=== PATIENT | male | born 1990 | race African-American/Black ===

== ENCOUNTER 2016-05-09 12:59 | Emergency (ER) | payer SELFPAY ==
[2016-05-09] MEDS ORDERED: Benzonatate 100 MG CAP ONE (13:36)
[2016-05-09] MEDS ORDERED: Acetaminophen 325 MG TAB ONE (13:36)
--- NOTE | 2016-05-09 13:56 | ERRECORD ---
[facility] EMERGENCY RECORD HPI COUGH (15:36 LHOD) CHIEF COMPLAINT: Patient presents for evaluation of cough. HISTORIAN: History provided by patient. TIME COURSE: WEDNESDAY ONSET OF DRY COUGH. TODAY TEMP TO 100.8. MOTHER WITH SAME SYMPTOMS. SEEN HERE ALSO. ASSOCIATED WITH: No associated chest pain, No associated chills, No associated diarrhea, No associated diaphoresis, No associated dyspnea on exertion, Associated with fever, No associated increased inhaler use, No associated nausea, No associated orthopnea, No associated palpitations, No associated paroxysmal nocturnal dyspnea, No associated peripheral edema, No associated pleuritic symptoms, No associated stridor, No associated wheezing, No associated weakness. EXACERBATED BY: Patient's condition exacerbated by nothing. RELIEVED BY: Patient's condition relieved by nothing. ROS (15:38 LHOD) CONSTITUTIONAL: Historian reports fever, measured temperature of 100.8. ENT: Historian reports epistaxis, denies sore throat. NOSEBLEEDS EARLIER TODAY. CARDIOVASCULAR: Historian denies chest pain. RESPIRATORY: Historian reports cough, denies shortness of breath. GI: Historian denies abdominal pain, denies diarrhea, denies vomiting. MUSCULOSKELETAL: Negative musculoskeletal review of systems. SKIN: Historian denies rash. NEUROLOGIC: Historian denies headache. HEMO/LYMPHATIC: Historian denies easy bruising. ALLERGIC/IMMUNOLOGIC: Historian denies environmental allergies. NOTES: All systems reviewed, negative except as described above. PAST MEDICAL HISTORY MEDICAL HISTORY: Flu vaccine not up to date, Tetanus not up to date, Pneumococcal vaccine not up to date, Past medical history includes pulmonary disease, asthma. ([facility] May 09, 2016 13:18 MDEB) MALE SURGICAL HISTORY: Patient has no surgical history. ([facility] May 09, 2016 13:18 MDEB) PSYCHIATRIC HISTORY: No previous psychiatric history. ([facility] May 09, 2016 13:18 MDEB) SOCIAL HISTORY: Patient denies alcohol use, Patient denies drug use, Patient currently uses tobacco, smokes cigarettes, Light tobacco smoker, Patient drinks socially, twice a month, Patient is a former drug user, abused marijuana, Patient currently uses tobacco, smokes cigarettes, daily, Patient smokes 1 pack per day, Patient denies alcohol use, Patient is a former drug user, Drug history notes: DENIES WITH HESITATION, Patient currently uses tobacco, smokes cigarettes, Patient smokes 1/2 packs per day, Patient &a-1R&a+25V*p+0X*[id number]*c202B*c15G*c2P*p-0X&a-25V&a+1R Name: Henri Santoyo : 1990 M26 MedRec: [id number] AcctNum: [id number] Prepared: [facility] May 09, 2016 15:44 by Interface Page 1 of 3 pMD [facility] EMERGENCY RECORD currently uses tobacco, Patient smokes cigarettes, Patient drinks socially, Patient denies drug use. 03/05/14 VERIFIED SMOKER. Patient currently uses drugs, abuses marijuana, Daily drug use, Patient currently uses tobacco, Patient smokes cigarettes, Patient drinks socially, Patient denies drug use. 03/05/14 VERIFIED SMOKER. - PER PT "I SMOKE EVERY COUPLE OF DAYS". (Sat May 09, 2016 13:18 MDEB) FAMILY HISTORY: Family istory is not significant, Family history includes diabetes. ([facility] May 09, 2016 13:18 MDEB) NOTES: Nursing records reviewed. (13:22 LHOD) KNOWN ALLERGIES No Known Drug Allergies CURRENT MEDICATIONS No recorded medications VITAL SIGNS VITAL SIGNS: BP: 190/65, Pulse: 94, Resp: 20, Temp: 100.2 (Tympanic), Pain: 0, O2 sat: 99 on Room Air, Time: 05/09/2016 13:14. (13:14 MDEB) BP: 104/73, Pulse: 96, Resp: 18, O2 sat: 100 on RA, Time: 05/09/2016 13:45. (13:45 MDEB) PHYSICAL EXAM (15:38 LHOD) CONSTITUTIONAL: Vital Signs Reviewed, Patient febrile, temperature of 100.2, Pulse normal, Blood pressure, hypertensive, REPEATED 104/73---SO INITIAL PROBABLE ERROR, Respiratory rate normal, Normal pulse oximetry, Patient appears non toxic, Patient appears pain free, Patient alert and oriented to person, place and time. EYES: Pupils equally round and reactive to light, Extraocular muscles intact, Conjunctiva normal. ENT: Ear exam normal, Nose exam included findings of, DRIED BLOOD IN NARES, Pharynx exam normal. NECK: Neck exam included findings of normal range of motion, Trachea midline. RESPIRATORY CHEST: Respiratory exam included findings of no respiratory distress, Breath sounds clear. CARDIOVASCULAR: Cardiovascular exam included findings of heart rate regular rate and rhythm, Heart sounds normal. ABDOMEN MALE: Abdominal exam included findings of abdomen nontender. BACK: Back exam normal. UPPER EXTREMITY: Upper extremity exam normal. LOWER EXTREMITY: Left lower leg exam normal, Right lower leg exam normal. NEURO: Neuro exam findings include patient oriented to person, place and time, Speech normal. SKIN: no rash. &a-1R&a+25V*p+0X*x8812R*c202B*c15G*c2P*p-0X&a-25V&a+1R Name: Henri Santoyo : 1990 M26 MedRec: [id number] AcctNum: [id number] Prepared: [facility] May 09, 2016 15:44 by Interface Page 2 of 3 pMD [facility] EMERGENCY RECORD MEDICATION ADMINISTRATION SUMMARY Drug Name: Tylenol, Dose Ordered: 650 mg, Route: Oral, Status: Given, Time: 13:40 05/09/2016, Drug Name: benzonatate, Dose Ordered: 200 mg, Route: Oral, Status: Given, Time: 13:40 05/09/2016, Detailed record available in Medication Service section. DOCTOR NOTES (15:41 LHOD) TEXT: NO TREATMENT OF EPISTAXIS REQUIRED. PROBLEM LIST No recorded problems DIAGNOSIS (13:31 LHOD) FINAL: PRIMARY: VIRAL URI, ADDITIONAL: BILATERAL EPISTAXIS---RESOLVED, LABILE HYPERTENSION. PRESCRIPTION (13:32 LHOD) albuterol sulfate inhalation: HFA AEROSOL WITH ADAPTER (GM) : 90 mcg : INHALATION : Quantity: 2 Unit: puff(s) Route: INHALATION Schedule: every 4 hours prn Dispense: 1 May substitute. Refills: No Refills . NOTES: No Refills. benzonatate: CAPSULE (HARD, SOFT, ETC.) : 200 mg : ORAL : Quantity: 1 Unit: tab(s) Route: ORAL Schedule: every 8 hours PRN Dispense: 10 May substitute. Refills: No Refills . NOTES: 1 REFILL No Refills. DISPOSITION PATIENT: Disposition Type: Discharge, Disposition: *Discharge Home, Condition: Good. (13:31 LHOD) Disposition Transport: Car, Patient left the department. (13:48 LWAL) Meier: LHOD=MD Brittni, Nicolette LWAL=HIWOT Hurtado, Tonia BLACKMONEB=HIWOT Mcdonald, Irma &a-1R&a+25V*p+0X*[id number]*c202B*c15G*c2P*p-0X&a-25V&a+1R Name: Henri Santoyo : 1990 M26 MedRec: [id number] AcctNum: [id number] Prepared: [facility] May 09, 2016 15:44 by Interface Page 3 of 3 pMD MTDD
--- NOTE | 2016-05-09 14:02 | PICIS ---
[facility] EMERGENCY RECORD TRIAGE ([facility] May 09, 2016 13:18 MDEB) PATIENT: NAME: Henri Santoyo, AGE: 26, GENDER: male, : Andreina 1990, TIME OF GREET: WedMay 09, 2016 12:59, PREFERRED LANGUAGE: Malay, RACE: Black or , ETHNICITY: Not or , ECODE BILLING MAP: [facility], SSN: [id number], Zip Code: [address], KG WEIGHT: 53.52, PHONE: , , , PERSON ID: [id number], PCP: NO PCP. ([facility] May 09, 2016 13:18 MDEB) TRIAGE NOTES: PRODUCTIVE COUGH, FEVER, CONGESTION X 3 DAYS. ([facility] May 09, 2016 13:18 MDEB) COMPLAINT: FLU LIKE SYMPTOMS. ([facility] May 09, 2016 13:18 MDEB) ADMISSION: URGENCY: 4 Non Urgent, ADMISSION SOURCE: Home, TRANSPORT: Walk-in, BED: TRIAGE. ([facility] May 09, 2016 13:18 MDEB) PAIN: Notes: PLEURETIC PAIN WITH COUGH. ([facility] May 09, 2016 13:18 MDEB) TRIAGE SCREENING: Patient denies suicidal ideation, Patient denies presence of domestic violence. ([facility] May 09, 2016 13:18 MDEB) PROVIDERS: TRIAGE NURSE: Irma Mcdonald RN. ([facility] May 09, 2016 13:18 MDEB) VITAL SIGNS: BP 190/65, Pulse 94, Resp 20, Temp 100.2, (Tympanic), Pain 0, O2 Sat 99, on Room Air, Time 05/09/2016 13:14. (13:14 MDEB) PREVIOUS VISIT ALLERGIES: No Known Drug Allergies. ([facility] May 09, 2016 13:18 MDEB) KNOWN ALLERGIES No Known Drug Allergies CURRENT MEDICATIONS No recorded medications VITAL SIGNS VITAL SIGNS: BP: 190/65, Pulse: 94, Resp: 20, Temp: 100.2 (Tympanic), Pain: 0, O2 sat: 99 on Room Air, Time: 05/09/2016 13:14. (13:14 MDEB) BP: 104/73, Pulse: 96, Resp: 18, O2 sat: 100 on RA, Time: 05/09/2016 13:45. (13:45 MDEB) NURSING ASSESSMENT: RESPIRATORY /CHEST (13:18 MDEB) CONSTITUTIONAL: Patient arrives ambulatory, Gait steady, History obtained from patient, Patient appears, anxious, uncomfortable, Patient cooperative, Patient alert, Oriented to person, place and time, Skin warm, Skin dry, Skin normal in color, Mucous membranes pink, Mucous membranes moist, Patient is well-groomed, Patient complains of PRODUCTIVE COUGH, REPORTS FEVER, CONGESTION X 3 DAYS. PAIN: aching pain, PAIN WITH COUGH ONLY. RESPIRATORY/CHEST: Breath sounds clear, Respiratory assessment findings include respiratory effort easy, Respirations regular, Conversing normally, Neck and chest exam findings include trachea &a-1R&a+25V*p+0X*[id number]*c202B*c15G*c2P*p-0X&a-25V&a+1R Name: Henri Santoyo : 1990 M26 MedRec: [id number] AcctNum: [id number] Prepared: [facility] May 09, 2016 15:50 by Interface Page 1 of 6 pMD [facility] EMERGENCY RECORD midline, Chest expansion equal, Chest movement symmetrical, Associated with cough, productive of, green sputum, Associated with fever, Maximum temperature 100.2, tympanic. ENT: Ear assessment findings include ear normal to inspection, Congestion, Mouth and throat assessment findings include mouth inspection normal, Mucous membranes pink, and moist, Able to swallow, Speech normal, Associated with fever, Maximum temperature (degree F) 100.2, tympanically. NOTES: Emotional support needed and given, Patient tolerated procedure well. SAFETY: Side rails up, Cart/Stretcher in lowest position, Call light within reach, Hospital ID band on. NURSING PROCEDURE: DISCHARGE NOTE (13:45 MDEB) DISCHARGE: Patient discharged to home, ambulating without assistance, driving self, unaccompanied, Summary of Care printed/ provided, Patient requested and was provided an electronic copy of Discharge Instructions, Transition record given to patient, Discharge instructions given to patient, Prescriptions given and instructions on side effects given, Above person(s) verbalized understanding of discharge instructions and follow-up care, Patient treated and evaluated by physician. BELONGINGS: Belongings remain with patient, Valuables remain with patient. NOTES: Emotional support needed and given, Patient tolerated procedure well. VITAL SIGNS: BP: 104, / 73, Pulse: 96, Resp: 18, O2 sat: 100, on: RA. MEDICATION ADMINISTRATION SUMMARY Drug Name: Tylenol, Dose Ordered: 650 mg, Route: Oral, Status: Given, Time: 13:40 05/09/2016, Drug Name: benzonatate, Dose Ordered: 200 mg, Route: Oral, Status: Given, Time: 13:40 05/09/2016, Detailed record available in Medication Service section. MEDICATION SERVICE (13:40 OD) benzonatate: Order: benzonatate - Dose: 200 mg : Oral Ordered by: Nicolette Elkins MD Entered by: Nicolette Elkins MD Sat May 09, 2016 13:31 , Acknowledged by: Tonia Hurtado RN Sat May 09, 2016 13:34 Documented as given by: Tonia Hurtado RN Sat May 09, 2016 13:40 Patient, Medication, Dose, Route and Time verified prior to administration. Amount given: 200MG, Site: Medication administered P.O., Correct patient, time, route, dose and medication confirmed prior to administration, Patient advised of actions and side-effects prior to administration, Allergies confirmed and medications reviewed prior to &a-1R&a+25V*p+0X*y6406R*c202B*c15G*c2P*p-0X&a-25V&a+1R Name: Henri Santoyo : 1990 M26 MedRec: [id number] AcctNum: [id number] Prepared: Sat May 09, 2016 15:50 by Interface Page 2 of 6 pMD [facility] EMERGENCY RECORD administration, Patient in position of comfort, Side rails up, Cart in lowest position. Tylenol: Order: Tylenol (acetaminophen) - Dose: 650 mg : Oral Ordered by: Nicolette Elkins MD Entered by: Nicolette Elkins MD Sat May 09, 2016 13:31 , Acknowledged by: Tonia Hurtado RN Sat May 09, 2016 13:34 Documented as given by: Tonia Hurtado RN Sat May 09, 2016 13:40 Patient, Medication, Dose, Route and Time verified prior to administration. Amount given: 650 MG, Site: Medication administered P.O., Correct patient, time, route, dose and medication confirmed prior to administration, Patient advised of actions and side-effects prior to administration, Allergies confirmed and medications reviewed prior to administration, Patient in position of comfort, Side rails up, Cart in lowest position. HPI COUGH (15:36 LHOD) CHIEF COMPLAINT: Patient presents for evaluation of cough. HISTORIAN: History provided by patient. TIME COURSE: WEDNESDAY ONSET OF DRY COUGH. TODAY TEMP TO 100.8. MOTHER WITH SAME SYMPTOMS. SEEN HERE ALSO. ASSOCIATED WITH: No associated chest pain, No associated chills, No associated diarrhea, No associated diaphoresis, No associated dyspnea on exertion, Associated with fever, No associated increased inhaler use, No associated nausea, No associated orthopnea, No associated palpitations, No associated paroxysmal nocturnal dyspnea, No associated peripheral edema, No associated pleuritic symptoms, No associated stridor, No associated wheezing, No associated weakness. EXACERBATED BY: Patient's condition exacerbated by nothing. RELIEVED BY: Patient's condition relieved by nothing. ROS (15:38 LHOD) CONSTITUTIONAL: Historian reports fever, measured temperature of 100.8. ENT: Historian reports epistaxis, denies sore throat. NOSEBLEEDS EARLIER TODAY. CARDIOVASCULAR: Historian denies chest pain. RESPIRATORY: Historian reports cough, denies shortness of breath. GI: Historian denies abdominal pain, denies diarrhea, denies vomiting. MUSCULOSKELETAL: Negative musculoskeletal review of systems. SKIN: Historian denies rash. NEUROLOGIC: Historian denies headache. HEMO/LYMPHATIC: Historian denies easy bruising. ALLERGIC/IMMUNOLOGIC: Historian denies environmental allergies. NOTES: All systems reviewed, negative except as described above. &a-1R&a+25V*p+0X*m2612K*c202B*c15G*c2P*p-0X&a-25V&a+1R Name: Henri Santoyo : 1990 M26 MedRec: [id number] AcctNum: [id number] Prepared: Sat May 09, 2016 15:50 by Interface Page 3 of 6 pMD [facility] EMERGENCY RECORD PAST MEDICAL HISTORY MEDICAL HISTORY: Flu vaccine not up to date, Tetanus not up to date, Pneumococcal vaccine not up to date, Past medical history includes pulmonary disease, asthma. (Sat May 09, 2016 13:18 MDEB) MALE SURGICAL HISTORY: Patient has no surgical history. ([facility] May 09, 2016 13:18 MDEB) PSYCHIATRIC HISTORY: No previous psychiatric history. ([facility] May 09, 2016 13:18 MDEB) SOCIAL HISTORY: Patient denies alcohol use, Patient denies drug use, Patient currently uses tobacco, smokes cigarettes, Light tobacco smoker, Patient drinks socially, twice a month, Patient is a former drug user, abused marijuana, Patient currently uses tobacco, smokes cigarettes, daily, Patient smokes 1 pack per day, Patient denies alcohol use, Patient is a former drug user, Drug history notes: DENIES WITH HESITATION, Patient currently uses tobacco, smokes cigarettes, Patient smokes 1/2 packs per day, Patient currently uses tobacco, Patient smokes cigarettes, Patient drinks socially, Patient denies drug use. 03/05/14 VERIFIED SMOKER. Patient currently uses drugs, abuses marijuana, Daily drug use, Patient currently uses tobacco, Patient smokes cigarettes, Patient drinks socially, Patient denies drug use. 03/05/14 VERIFIED SMOKER. - PER PT "I SMOKE EVERY COUPLE OF DAYS". ([facility] May 09, 2016 13:18 MDEB) FAMILY HISTORY: Family istory is not significant, Family history includes diabetes. ([facility] May 09, 2016 13:18 MDEB) NOTES: Nursing records reviewed. (13:22 LHOD) PHYSICAL EXAM (15:38 LHOD) CONSTITUTIONAL: Vital Signs Reviewed, Patient febrile, temperature of 100.2, Pulse normal, Blood pressure, hypertensive, REPEATED 104/73---SO INITIAL PROBABLE ERROR, Respiratory rate normal, Normal pulse oximetry, Patient appears non toxic, Patient appears pain free, Patient alert and oriented to person, place and time. EYES: Pupils equally round and reactive to light, Extraocular muscles intact, Conjunctiva normal. ENT: Ear exam normal, Nose exam included findings of, DRIED BLOOD IN NARES, Pharynx exam normal. NECK: Neck exam included findings of normal range of motion, Trachea midline. RESPIRATORY CHEST: Respiratory exam included findings of no respiratory distress, Breath sounds clear. CARDIOVASCULAR: Cardiovascular exam included findings of heart rate regular rate and rhythm, Heart sounds normal. ABDOMEN MALE: Abdominal exam included findings of abdomen nontender. BACK: Back exam normal. UPPER EXTREMITY: Upper extremity exam normal. LOWER EXTREMITY: Left lower leg exam normal, Right lower leg exam normal. &a-1R&a+25V*p+0X*e1676X*c202B*c15G*c2P*p-0X&a-25V&a+1R Name: Henri Santoyo : 1990 M26 MedRec: [id number] AcctNum: [id number] Prepared: [facility] May 09, 2016 15:50 by Interface Page 4 of 6 pMD [facility] EMERGENCY RECORD NEURO: Neuro exam findings include patient oriented to person, place and time, Speech normal. SKIN: no rash. EVENTS TRANSFER: Triage to Emergency Triage. (13:18 MDEB) Emergency Triage to Main ED -01. (13:18 MDEB) Removed from Emergency Main ED -01. (13:48 LWAL) DOCTOR NOTES (15:41 LHOD) TEXT: NO TREATMENT OF EPISTAXIS REQUIRED. PROBLEM LIST No recorded problems DIAGNOSIS (13:31 LHOD) FINAL: PRIMARY: VIRAL URI, ADDITIONAL: BILATERAL EPISTAXIS---RESOLVED, LABILE HYPERTENSION. DISPOSITION PATIENT: Disposition Type: Discharge, Disposition: *Discharge Home, Condition: Good. (13:31 LHOD) Disposition Transport: Car, Patient left the department. (13:48 LWAL) INSTRUCTION (13:33 LHOD) DISCHARGE: VIRAL URI ADULT, EPISTAXIS (ADULT), FEVER CONTROL (ADULT). FOLLOWUP: Follow up with Primary Care Physician as needed. SPECIAL: GET ALBUTEROL PRESCRIPTION FILLED ONLY IF WHEEZING. *RETURN IF WORSE Follow-up with your PCP. PRESCRIPTION (13:32 LHOD) albuterol sulfate inhalation: HFA AEROSOL WITH ADAPTER (GM) : 90 mcg : INHALATION : Quantity: 2 Unit: puff(s) Route: INHALATION Schedule: every 4 hours prn Dispense: 1 May substitute. Refills: No Refills . NOTES: No Refills. benzonatate: CAPSULE (HARD, SOFT, ETC.) : 200 mg : ORAL : Quantity: 1 Unit: tab(s) Route: ORAL Schedule: every 8 hours PRN Dispense: 10 May substitute. Refills: No Refills . NOTES: 1 REFILL No Refills. IMAGING (13:49 LWAL) *DISCHARGE INSTRUCTIONS RECEIPT: Image captured from scanner. *SUPPLY CHARGE SHEET: Image captured from scanner. ADMIN (15:41 LHOD) &a-1R&a+25V*p+0X*o8830Q*c202B*c15G*c2P*p-0X&a-25V&a+1R Name: Henri Santoyo : 1990 6 MedRec: [id number] AcctNum: [id number] Prepared: Sat May 09, 2016 15:50 by Interface Page 5 of 6 pMD [facility] EMERGENCY RECORD DIGITAL SIGNATURE: MD Brittni, Nicolette. Meier: LHOD=MD Elkins Lefayne LWAL=HIWOT Hurtado, Tonia BLACKMONEB=HIWOT Mcdonald, Irma &a-1R&a+25V*p+0X*l0514R*c202B*c15G*c2P*p-0X&a-25V&a+1R Name: Henri Santoyo Charito : 1990 [facility] [place] MedRec: [id number] AcctNum: [id number] Prepared: Sat May 09, 2016 15:50 by Interface Page 6 of 6 pMD MTDD
== END 2016-05-09 13:45 | disposition home or self-care (01) ==
LOC: MADERS 12:59
DX: J06.9 Acute upper respiratory infection, unspecified (principal); R04.0 Epistaxis; I10 Essential (primary) hypertension; J45.909 Unspecified asthma, uncomplicated; F17.210 Nicotine dependence, cigarettes, uncomplicated
CPT/HCPCS: 99283

== ENCOUNTER 2021-12-07 12:20 | Emergency (ER) | payer SELFPAY ==
[2021-12-07] MEDS ORDERED: Triamcinolone 40 MG/ML VIAL ONE (14:30)
== END 2021-12-07 14:45 | disposition home or self-care (01) ==
LOC: MADERS 12:20
DX: J30.1 Allergic rhinitis due to pollen (principal); L30.9 Dermatitis, unspecified; F17.210 Nicotine dependence, cigarettes, uncomplicated
CPT/HCPCS: 96372; 99282; J3301

== ENCOUNTER 2022-03-13 20:26 | Emergency (ER) | payer SELFPAY ==
[2022-03-13] MEDS ORDERED: Acetaminophen 500 MG TAB ONE (21:05)
[2022-03-13] MEDS ORDERED: Ibuprofen 800 MG TAB ONE (21:05)
[2022-03-13] MEDS ORDERED: predniSONE 20 MG TAB ONE (21:40)
[2022-03-13] MEDS ORDERED: predniSONE 10 MG TAB ONE (21:40)
[2022-03-13] MEDS ORDERED: Albuterol 200 PUFF (6.7GM INHALER) ONE (21:40)
[2022-03-13] MEDS ORDERED: Benzonatate 100 MG CAP ONE (22:06)
== END 2022-03-13 22:15 | disposition home or self-care (01) ==
LOC: MADERS 20:26
DX: J10.1 Influenza due to other identified influenza virus with other respiratory manifestations (principal); J45.909 Unspecified asthma, uncomplicated; F17.210 Nicotine dependence, cigarettes, uncomplicated; Z20.822 Contact with and (suspected) exposure to COVID-19
CPT/HCPCS: 71046; 87804; 93005; J7512; U0003; U0005

== ENCOUNTER 2022-05-28 14:11 | Emergency (ER) | payer SELFPAY ==
[2022-05-28] MEDS ORDERED: Dexamethasone 10 MG/ML VIAL ONE (14:30)
== END 2022-05-28 14:48 | disposition home or self-care (01) ==
LOC: MADERS 14:11
DX: J30.9 Allergic rhinitis, unspecified (principal); F17.210 Nicotine dependence, cigarettes, uncomplicated
CPT/HCPCS: 96372; 99282; J1100

== ENCOUNTER 2022-06-01 18:30 | Emergency (ER) | payer SELFPAY | END 2022-06-01 19:25 | disposition home or self-care (01) | LOC: MADERS 18:30 | DX: J30.9 Allergic rhinitis, unspecified (principal); F17.210 Nicotine dependence, cigarettes, uncomplicated | CPT/HCPCS: 99282 ==

== ENCOUNTER 2022-07-25 09:11 | Emergency (ER) | payer SELFPAY ==
[2022-07-25] MEDS ORDERED: Sterile Water 10 ML ONE (09:35)
[2022-07-25] MEDS ORDERED: Ipratropium/Albuterol 3 ML NEB ONE (09:36)
[2022-07-25] MEDS ORDERED: cefTRIAXone (ROCEPHIN) 1 GM VIAL ONE (09:36)
== END 2022-07-25 10:52 | disposition home or self-care (01) ==
LOC: MADERS 09:11
DX: J20.9 Acute bronchitis, unspecified (principal); F17.210 Nicotine dependence, cigarettes, uncomplicated
CPT/HCPCS: 71046; 96372; J0696; J1040; J7620

== ENCOUNTER 2022-10-23 19:30 | Emergency (ER) | payer OTHER ==
[2022-10-23] MEDS ORDERED: Ondansetron ODT 4 MG TAB ONE (19:49)
== END 2022-10-23 20:06 | disposition home or self-care (01) ==
LOC: MADERS 19:30
DX: K52.9 Noninfective gastroenteritis and colitis, unspecified (principal); F17.210 Nicotine dependence, cigarettes, uncomplicated
CPT/HCPCS: 99283; Q0162

== ENCOUNTER 2022-12-11 20:08 | Emergency (ER) | payer OTHER | END 2022-12-11 21:28 | disposition home or self-care (01) | LOC: MADERS 20:08 | DX: B34.9 Viral infection, unspecified (principal); F17.210 Nicotine dependence, cigarettes, uncomplicated | CPT/HCPCS: 87081; 87430; 87804; 99284 ==

== ENCOUNTER 2023-03-14 21:29 | Emergency (ER) | payer OTHER ==
[2023-03-14] MEDS ORDERED: Acetaminophen 325 MG TAB ONE (22:01)
[2023-03-14 23:36] LABS: Bilirubin Negative (Negative); Blood, Urine Negative (Negative); Clarity Clear (Clear); Glucose, Urine (Dipstick) Negative (Negative); Ketone, Urine Negative (Negative); Leukocyte Negative (Negative); Nitrite Negative (Negative); Protein, Urine (Dipstick) Negative (Neg-Trace); Urobilinogen 0.2 mg/dL (Less than 2); pH, Urine 5.5 (5.0-9.0)
[2023-03-14 23:37] LABS: CAUTI Indications for Culture Fever or rigors; RBC/HPF None Seen HPF (0-3); Specific Gravity, Urine 1.005 (1.002-1.036); Squamous Epithelial 0-3 HPF (0-3); WBC/HPF None Seen HPF (0-3)
[2023-03-14 23:38] LABS: Acetaminophen 12 mcg/mL (10.0-30.0); Alcohol Less than 10.0 mg/dL (Less than 10); Salicylate Less than 8.0 mg/dL (15.0-30.0); Urine Culture Reflex No No
[2023-03-15 00:06] LABS: Amphetamine Not Detected (NotDetected); Barbiturates Screen Not Detected (NotDetected); Benzodiazepine Screen Not Detected (NotDetected); Cocaine Metabolite Screen Not Detected (NotDetected); Methadone Not Detected (NotDetected); Methamphetamine Not Detected (NotDetected); Opiate Screen Not Detected (NotDetected); Oxycodone Screen Not Detected (NotDetected); Phencyclidine (PCP) Not Detected (NotDetected); THC/Cannabinoid Screen Not Detected (NotDetected); Tricyclic Screen Not Detected (NotDetected)
== END 2023-03-15 00:16 | disposition home or self-care (01) ==
LOC: MADERS 21:29
DX: J11.1 Influenza due to unidentified influenza virus with other respiratory manifestations (principal); F17.210 Nicotine dependence, cigarettes, uncomplicated; Z20.822 Contact with and (suspected) exposure to COVID-19
CPT/HCPCS: 36415; 71046; 80306; 80307; 81001; 87635; 87804

== ENCOUNTER 2023-06-20 10:37 | Emergency (ER) | payer OTHER ==
[2023-06-20] MEDS ORDERED: Bupivacaine PF 0.5% 30 ML VIAL ONE (11:01)
[2023-06-20] MEDS ORDERED: Penicillin V Potassium 250 MG TAB ONE (11:29)
== END 2023-06-20 11:44 | disposition home or self-care (01) ==
LOC: MADERS 10:37
DX: K08.89 Other specified disorders of teeth and supporting structures (principal); K02.9 Dental caries, unspecified; F17.210 Nicotine dependence, cigarettes, uncomplicated
CPT/HCPCS: 64400; J0665

== ENCOUNTER 2024-03-14 08:02 | Emergency (ER) | payer OTHER | END 2024-03-14 08:49 | disposition home or self-care (01) | LOC: MADERS 08:02 | DX: J06.9 Acute upper respiratory infection, unspecified (principal); H10.9 Unspecified conjunctivitis; F17.210 Nicotine dependence, cigarettes, uncomplicated | CPT/HCPCS: 87081; 87430; 99283 ==